=== PATIENT | female | born 1960 | race American Indian/Alaskan Native ===

== ENCOUNTER 2019-05-11 13:30 | Inpatient (IN) | payer MEDICARE ==
[2019-05-11] MEDS ORDERED: ASPIRIN PO ONE (13:51)
--- NOTE | 2019-05-11 13:53 | Event Note ---
ED Screening Note Date of service: 05/04/19 Time: 13:49 ED Screening Note: This is a 58 y.o. F. that presents to the ER with elevated blood pressure for 3- 4 days. PMH of HTN CC: Chest pain and headache Current cigar smoker Notified PCP Dr. Jacob who instructed patient to come into ER. Currently taking lisinopril 40 mg po daily. States she was taken off HCTZ due to renal failure but started back taking it for 3 days. This initial assessment/diagnostic orders/clinical plan/treatment(s) is/are subject to change based on patients health status, clinical progression and re- assessment by fellow clinical providers in the ED. Further treatment and workup at subsequent clinical providers discretion. Patient/guardian urged not to elope from the ED as their condition may be serious if not clinically assessed and managed. Initial orders include: Labs, EKG, & CXR
[2019-05-11 14:24] LABS: Hematocrit 30.3 % (30.3-42.9); Hemoglobin 9.7 gm/dl (10.1-14.3); Mean Corpuscular HGB Conc 32 % (30-34); Mean Corpuscular Volume 81 fl (79-97); Platelet Count 212 K/mm3 (140-440); Red Blood Count 3.74 M/mm3 (3.65-5.03)
[2019-05-11 14:28] LABS: Red Cell Distribution Width 23.5 % (13.2-15.2)
[2019-05-11] MEDS ORDERED: APRESOLINE IV ONE (14:43)
[2019-05-11 14:46] LABS: BUN/Creatinine Ratio 9; Blood Urea Nitrogen 10 mg/dL (7-17); Calcium 10.9 mg/dL (8.4-10.2); Hemolysis Index 0
--- NOTE | 2019-05-11 15:00 | Emergency Department Report ---
ED Chest Pain HPI - General Chief Complaint: Chest Pain Stated Complaint: HIGH BP/CHEST PAIN Time Seen by Provider: 05/11/19 13:49 Source: patient Mode of arrival: Ambulatory Limitations: No Limitations - History of Present Illness Initial Comments: 58-year-old -Slov[place] female presents to the emergency department with a complaint of a 2 day history of some left-sided chest pain, as well as elevated and uncontrolled blood pressure. The patient has a past medical history of hypertension, non-insulin dependent diabetes, high cholesterol, gout and neuropathy. The patient previously was on lisinopril and hydrochlorothiazide but the HCTZ was discontinued about 2 months ago secondary to some "kidney problems" that it caused. However the patient has been having this left-sided chest pain over the past 2 days and she has been checking her blood pressure and found it to be very elevated. Therefore the patient made the decision to restart the HCTZ but she still continues to have elevated blood pressures. The patient will occasionally smoke a Black and mild. She denies any illicit drug use. She thinks that she may have had a negative stress test at the end of last year at [facility]. Her primary care physician is Dr. Jacob, whom she contacted and was told to go to the emergency department with her complaints. She does not have a box car bracer. No recent travel or sick contacts at home. She took some aspirin last night for her symptoms without any relief. - Related Data Home Medications Medication Instructions Recorded Confirmed Last Taken Acetaminophen with Codeine 30 - 300 mg PO DAILY PRN 04/30/14 05/11/19 Unknown [Acetaminophen-Codeine #4 TAB] Aspirin 325 mg PO DAILY 04/30/14 05/11/19 Unknown Indomethacin [Indocin] 25 mg PO DAILY PRN 04/30/14 05/11/19 Unknown Lisinopril [Zestril TAB] 20 mg PO DAILY 04/30/14 05/11/19 Unknown Rosuvastatin (Nf) [Crestor] 40 mg PO DAILY 04/30/14 05/11/19 Unknown Triamter/Hctz 37.5-25 mg 25 mg PO DAILY 04/30/14 05/11/19 Unknown [Maxzide-25] metFORMIN [Glucophage] 500 mg PO BID 04/30/14 05/11/19 Unknown Previous Rx's Medication Instructions Recorded Last Taken Type Polyethylene Glycol 3350 [Miralax] 17 gm PO DAILY #5 day 01/21/14 Unknown Rx Allergies Allergy/AdvReac Type Severity Reaction Status Date / Time latex Allergy Swelling Verified 05/11/19 13:32 Heart Score - HEART Score History: Moderately suspicious EKG: Non-specific Age: 45-65 Risk factors: > 3 risk factors or hx of atherosclerotic disease Troponin: < normal limit HEART Score: 5 - Critical Actions Critical Actions: 4-6 pts:12-16.6% risk of adverse cardiac event. Should be admitted ED Review of Systems ROS: Stated complaint: HIGH BP/CHEST PAIN Other details as noted in HPI Comment: All other systems reviewed and negative Constitutional: denies: chills, fever Eyes: denies: eye pain, vision change ENT: denies: ear pain, throat pain Respiratory: denies: cough, shortness of breath Cardiovascular: chest pain. denies: palpitations Gastrointestinal: denies: abdominal pain, vomiting Genitourinary: denies: dysuria, frequency Musculoskeletal: denies: back pain, arthralgia Skin: denies: rash, lesions Neurological: denies: headache, weakness ED Past Medical Hx - Past Medical History Hx Hypertension: Yes Hx Diabetes: Yes Additional medical history: high cholesterol. gout. neuropathy - Surgical History Additional Surgical History: tubal ligation. cataracts / lens replaced - Social History Smoking Status: Current Every Day Smoker Substance Use Type: None - Medications Home Medications: Home Medications Medication Instructions Recorded Confirmed Last Taken Type Polyethylene Glycol 3350 [Miralax] 17 gm PO DAILY #5 day 01/21/14 05/11/19 Unknown Rx Acetaminophen with Codeine 30 - 300 mg PO DAILY PRN 04/30/14 05/11/19 Unknown History [Acetaminophen-Codeine #4 TAB] Aspirin 325 mg PO DAILY 04/30/14 05/11/19 Unknown History Indomethacin [Indocin] 25 mg PO DAILY PRN 04/30/14 05/11/19 Unknown History Lisinopril [Zestril TAB] 20 mg PO DAILY 04/30/14 05/11/19 Unknown History Rosuvastatin (Nf) [Crestor] 40 mg PO DAILY 04/30/14 05/11/19 Unknown History Triamter/Hctz 37.5-25 mg 25 mg PO DAILY 04/30/14 05/11/19 Unknown History [Maxzide-25] metFORMIN [Glucophage] 500 mg PO BID 04/30/14 05/11/19 Unknown History ED Physical Exam - General Limitations: No Limitations - Other Other exam information: GENERAL: The patient is well-developed well-nourished. HENT: Normocephalic. Atraumatic. Patient has moist mucous membranes. EYES: Extraocular motions are intact. NECK: Supple. Trachea is midline. CHEST/LUNGS: Clear to auscultation. There is no respiratory distress noted. HEART/CARDIOVASCULAR: Regular. There is no tachycardia. There is no murmur. ABDOMEN: Abdomen is soft, nontender. Patient has normal bowel sounds. There is no abdominal distention. SKIN: Skin is warm and dry. NEURO: The patient is awake, alert, and oriented. The patient is cooperative. The patient has normal speech. MUSCULOSKELETAL: There is no tenderness or deformity. There is no limitation range of motion. There is no evidence of acute injury. ED Course Vital Signs 05/11/19 05/11/19 05/11/19 13:50 14:43 15:31 Temperature 98.4 F Pulse Rate 81 62 Respiratory 16 18 Rate Blood Pressure 196/65 185/66 Blood Pressure [Left] O2 Sat by Pulse 100 100 Oximetry 05/11/19 15:33 Temperature Pulse Rate 62 Respiratory 18 Rate Blood Pressure Blood Pressure 185/66 [Left] O2 Sat by Pulse 100 Oximetry DERRICK score - Derrick Score Age > 65: (0) No Aspirin use within the Past 7 Days: (1) Yes 3 or more CAD Risk Factors: (1) Yes 2 or more Angina events in past 24 hrs: (1) Yes Known CAD with more than 50% Stenosis: (0) No Elevated Cardiac Markers: (0) No ST Deviation Greater than 0.5mm: (0) No DERRICK Score: 3 ED Medical Decision Making - Lab Data Result diagrams: 05/11/19 13:56 05/11/19 13:56 - EKG Data -: EKG Interpreted by Me EKG shows normal: sinus rhythm (but irregular), axis, intervals, QRS complexes (LVH), ST-T waves Rate: bradycardia (57 bpm) - EKG Data When compared to previous EKG there are: previous EKG unavailable Interpretation: other (sinus rhythm but irregular, mild bradycardia at 57 bpm, LVH) - Radiology Data Radiology results: image reviewed interpreted by me: Chest x-ray does not show any acute process. There are no pleural effusions, obvious pneumonia and there is no pneumothorax. - Medical Decision Making This patient presents with a 2 day history of some left-sided chest pain as well as some uncontrolled blood pressure despite compliance with her blood pressure medications. The patient even restarted the hydrochlorothiazide that had been previously discontinued. EKG shows some LVH but otherwise does not show any signs of ST elevation UT. Chest x-ray has been unremarkable. Labs have been mostly unremarkable except for some hypercalcemia. First troponin negative. She has some anemia but does not require a transfusion. An IV was placed and she was given a dose of hydralazine to start treating her hypertensive urgency. The patient has a moderate heart score as well as a moderate DERRICK score. She has multiple risk factors for coronary artery disease. For this reason, the patient will be admitted to the hospital for further evaluation and treatment was accepted for admission by the hospitalist, Dr. Woodward. - Differential Diagnosis UT, PE, costochondritis, pneumonia Critical Care Time: No Critical care attestation.: If time is entered above; I have spent that time in minutes in the direct care of this critically ill patient, excluding procedure time. ED Disposition Clinical Impression: Acute chest pain, Hypertensive urgency Disposition: OP ADMIT IP TO THIS HOSP Is pt being admited?: Yes Condition: Fair Instructions: Chest Pain (ED) Time of Disposition: 16:25
--- NOTE | 2019-05-11 15:12 | History and Physical Report ---
History of Present Illness Chief complaint: My chest hurts History of present illness: 58 YO Female with HTN, DM, Nicotine Dependence, HLD, Gout, Nephropathy presents to ED for evaluation. Pt states that she has experienced pain in her chest over the past 2 days. Pt states that pain is 5-7/10, Intermittent, Localized to the left chest, not worsened with exertion, not relieved with rest. Pt acknowledges decreased exercise tolerance, dypsnea with exertion. Pt notified her PCP and was instructed to seek further medical care. Pt transported via private vehicle to [facility]. Pt seen and evaluated in ED and found to have symptoms consistent with Angina, as well as CHF. Pt admitted to telemetry. Cardiology team consulted in ED. Pt denies fever, chills, palpitations, NVD, Trauma, Productive cough, BRBPR, skin rash, unintentional weight loss, night sweats, prolonged travel/immobility, unilateral leg swelling, calf pain, or recent ill contacts. Past History Past Medical History: hypertension, hyperlipidemia, other (gout) Past Surgical History: Other (Tubal ligation) Social history: single, smoking Family history: CAD, diabetes, hypertension Medications and Allergies Allergies Allergy/AdvReac Type Severity Reaction Status Date / Time latex Allergy Swelling Verified 05/11/19 13:32 Home Medications Medication Instructions Recorded Confirmed Last Taken Type Polyethylene Glycol 3350 [Miralax] 17 gm PO DAILY #5 day 01/21/14 05/11/19 Unknown Rx Acetaminophen with Codeine 30 - 300 mg PO DAILY PRN 04/30/14 05/11/19 Unknown History [Acetaminophen-Codeine #4 TAB] Aspirin 325 mg PO DAILY 04/30/14 05/11/19 Unknown History Indomethacin [Indocin] 25 mg PO DAILY PRN 04/30/14 05/11/19 Unknown History Lisinopril [Zestril TAB] 20 mg PO DAILY 04/30/14 05/11/19 Unknown History Rosuvastatin (Nf) [Crestor] 40 mg PO DAILY 04/30/14 05/11/19 Unknown History Triamter/Hctz 37.5-25 mg 25 mg PO DAILY 04/30/14 05/11/19 Unknown History [Maxzide-25] metFORMIN [Glucophage] 500 mg PO BID 04/30/14 05/11/19 Unknown History Review of Systems Constitutional: no weight loss, no weight gain, no fever, no chills Ears, nose, mouth and throat: no ear pain, no ear discharge, no tinnitis, no decreased hearing Breasts: no change in shape, no swelling, no mass Cardiovascular: chest pain, dyspnea on exertion, decreased exercise tolerance, no palpitations, no rapid/irregular heart beat, no syncope, no lightheadedness Respiratory: no cough, no cough with sputum, no excessive sputum, no hemoptysis, no shortness of breath Gastrointestinal: no nausea, no vomiting, no diarrhea, no constipation, no change in bowel habits Genitourinary Female: no pelvic pain, no flank pain, no menorrhagia, no dysuria, no urinary frequency, no urgency Rectal: no pain, no incontinence, no bleeding Musculoskeletal: no neck stiffness, no neck pain, no shooting arm pain, no arm numbness/tingling, no low back pain, no shooting leg pain, no leg numbness/tingling Integumentary: no rash, no pruritis, no redness, no sores, no wounds Neurological: no transient paralysis, no paralysis, no weakness, no parathesias, no numbness, no tingling, no seizures, no syncope Psychiatric: anxiety, no memory loss, no change in sleep habits, no insomnia, no hypersomnia, no change in libido, no suicidal ideation Endocrine: no cold intolerance, no heat intolerance, no polyphagia, no excessive thirst, no polydipsia, no excessive sweating Hematologic/Lymphatic: no easy bruising, no easy bleeding, no lymphadenopathy, no lymphedema Allergic/Immunologic: no urticaria, no wheezing, no persistent infections, no anaphylaxis, no angioedema Exam - Constitutional Vitals: Temp Pulse Resp BP Pulse Ox 98.4 F 81 16 196/65 100 05/11/19 13:50 05/11/19 13:50 05/11/19 13:50 05/11/19 13:50 05/11/19 13:50 General appearance: Present: mild distress - EENT Eyes: Present: PERRL ENT: hearing intact, clear oral mucosa - Neck Neck: Present: supple, normal ROM - Respiratory Respiratory effort: normal Respiratory: bilateral: CTA - Cardiovascular Heart Sounds: Present: S1 & S2. Absent: rub, click - Extremities Extremities: pulses symmetrical, No edema Peripheral Pulses: within normal limits - Abdominal General gastrointestinal: Present: soft, non-tender, non-distended, normal bowel sounds Female genitourinary: Present: normal - Integumentary Integumentary: Present: clear, warm, dry - Musculoskeletal Musculoskeletal: gait normal, strength equal bilaterally - Psychiatric Psychiatric: appropriate mood/affect, intact judgment & insight - Neurologic Neurologic: CNII-XII intact, moves all extremities Results - Labs CBC & Chem 7: 05/11/19 13:56 05/11/19 13:56 Labs: Abnormal lab results 05/11/19 05/11/19 Range/Units 13:56 13:56 WBC 2.3 L (4.5-11.0) K/mm3 Hgb 9.7 L (10.1-14.3) gm/dl MCH 26 L (28-32) pg RDW 23.5 H (13.2-15.2) % Glucose 107 H (65-100) mg/dL Calcium 10.9 H (8.4-10.2) mg/dL Assessment and Plan - Patient Problems (1) Diastolic CHF Current Visit: Yes Status: Acute Qualifiers: Heart failure chronicity: acute Qualified Code(s): I50.31 - Acute diastolic (congestive) heart failure Plan to address problem: Admit to telemetry, Echo, BNP, D dimer, chest x ray, pulse oximetry, strict I/O, daily weight, monitor uop q shift, cardiology consulted, magnesium, thyroid panel (2) Angina at rest Current Visit: Yes Status: Acute Plan to address problem: Serial cardiac enzymes, ekg, telemetry, stress test, cardiology consulted, morphine, supplemental oxygen, nitro, aspirin, (3) HLD (hyperlipidemia) Current Visit: Yes Status: Acute Qualifiers: Hyperlipidemia type: mixed hyperlipidemia Qualified Code(s): E78.2 - Mixed hyperlipidemia Plan to address problem: balanced diet, low cholesterol diet, (4) Gout Current Visit: Yes Status: Acute Qualifiers: Chronicity: unspecified Plan to address problem: Pain control, supportive care. (5) HLD (hyperlipidemia) Current Visit: Yes Status: Acute (6) Hypertensive urgency Current Visit: Yes Status: Acute Plan to address problem: Monitor BP q shift, supportive care, continue medical management. (7) DVT prophylaxis Current Visit: Yes Status: Acute Plan to address problem: SCD to BLE while in bed.
[2019-05-11] MEDS ORDERED: BABY ASPIRIN PO STA (15:13)
[2019-05-11] MEDS ORDERED: MORPHINE IV PRN (15:13)
[2019-05-11] MEDS ORDERED: PROVENTIL IH PRN (15:13)
[2019-05-11] MEDS ORDERED: SODIUM CHLORIDE FLUSH SYRINGE 10 ML IV PRN ×2 (15:13)
[2019-05-11] MEDS ORDERED: NITROSTAT SL PRN (15:13)
[2019-05-11] MEDS ORDERED: ZOFRAN IV PRN (15:13)
[2019-05-11] MEDS ORDERED: TYLENOL PO PRN (15:13)
--- NOTE | 2019-05-11 15:19 | XRay Report ---
CHEST 2 VIEWS INDICATION: Chest pain for 2 days. COMPARISON: None FINDINGS: Support devices: None. Heart: Within normal limits. Lungs/pleura: No acute air space or interstitial disease. No pneumothorax. Additional findings: None. IMPRESSION: No acute findings. Signer Name: Joshua Maynard Jr, MD Signed: 05/11/2019 3:15 PM Workstation Name: [id number]
[2019-05-11 15:22] LABS: Anisocytosis 1+; Hypochromasia 1+; Total Cells Counted 100
[2019-05-11] MEDS ORDERED: NORCO 5/325 PO PRN (15:38)
[2019-05-11] MEDS ORDERED: INDOCIN PO PRN (15:38)
[2019-05-11] MEDS ORDERED: ULTRAM PO PRN (15:38)
[2019-05-11] MEDS ORDERED: ATIVAN IV ONE (16:00)
[2019-05-11 16:14] LABS: Chol/HDL Ratio 3.89 %
[2019-05-11] MEDS: SODIUM CHLORIDE FLUSH SYRINGE 10 ML IV SCH (21:43)
[2019-05-11] MEDS ORDERED: ELAVIL PO SCH (22:00)
[2019-05-12 05:11] LABS: BUN/Creatinine Ratio 12; Blood Urea Nitrogen 12 mg/dL (7-17); Calcium 10.6 mg/dL (8.4-10.2); Hemolysis Index 0
[2019-05-12] MEDS ORDERED: LEXISCAN IV ONE ×2 (08:01→08:06)
[2019-05-12] MEDS ORDERED: ASPIRIN PO SCH (10:00)
[2019-05-12] MEDS ORDERED: NON-FORMULARY (Rosuvastatin 40 MG) PO SCH (10:00)
[2019-05-12] MEDS ORDERED: ZESTRIL PO SCH (10:00)
[2019-05-12] MEDS ORDERED: NON-FORMULARY (Polyethylene Glycol 3350 [Miralax] 17 GM) PO SCH (10:00)
[2019-05-12] MEDS ORDERED: PEPCID PO SCH (10:00)
[2019-05-12] MEDS ORDERED: MIRALAX 3350 PO SCH (10:00)
[2019-05-12] MEDS ORDERED: MAXZIDE-25 PO SCH (10:00)
--- NOTE | 2019-05-12 10:08 | Consultation ---
History of Present Illness Consult date: 05/12/19 Consult reason: chest pain History of present illness: 58 year old -[place] female presenting with chest pain. Patient admitted for further evaluation and management Past History Past Medical History: hypertension, hyperlipidemia, other (gout) Past Surgical History: Other (Tubal ligation) Social history: single, smoking Family history: CAD, diabetes, hypertension Medications and Allergies Allergies Allergy/AdvReac Type Severity Reaction Status Date / Time latex Allergy Swelling Verified 05/11/19 13:32 Home Medications Medication Instructions Recorded Confirmed Last Taken Type Polyethylene Glycol 3350 [Miralax] 17 gm PO DAILY #5 day 01/21/14 05/11/19 Unknown Rx Acetaminophen with Codeine 30 - 300 mg PO DAILY PRN 04/30/14 05/11/19 Unknown History [Acetaminophen-Codeine #4 TAB] Aspirin 325 mg PO DAILY 04/30/14 05/11/19 Unknown History Indomethacin [Indocin] 25 mg PO DAILY PRN 04/30/14 05/11/19 Unknown History Lisinopril [Zestril TAB] 20 mg PO DAILY 04/30/14 05/11/19 Unknown History Rosuvastatin (Nf) [Crestor] 40 mg PO DAILY 04/30/14 05/11/19 Unknown History metFORMIN [Glucophage] 500 mg PO BID 04/30/14 05/11/19 Unknown History Active Meds: Active Medications Acetaminophen (Tylenol) 650 mg PO Q4H PRN PRN Reason: Pain MILD(1-3)/Fever >100.5/PURI Last Admin: 05/11/19 21:45 Dose: 650 mg Documented by: Acetaminophen/Hydrocodone Bitart ([place] 5/325) 1 each PO Q6HR PRN PRN Reason: Pain Albuterol (Proventil) 2.5 mg IH Q4HRT PRN PRN Reason: Shortness Of Breath Amitriptyline HCl (Elavil) 50 mg PO QHS [facility] Last Admin: 05/11/19 21:40 Dose: 50 mg Documented by: Aspirin (Aspirin) 325 mg PO DAILY [facility] Atorvastatin Calcium (Lipitor) 80 mg PO QHS [facility] Last Admin: 05/11/19 21:40 Dose: 80 mg Documented by: Famotidine (Pepcid) 40 mg PO QDAY [facility] Indomethacin (Indocin) 25 mg PO DAILY PRN PRN Reason: gout Lisinopril (Zestril) 20 mg PO DAILY [facility] Morphine Sulfate (Morphine) 2 mg IV Q4H PRN PRN Reason: Pain, Moderate (4-6) Nitroglycerin (Nitrostat) 0.4 mg SL Q5M PRN PRN Reason: Chest Pain Ondansetron HCl (Zofran) 4 mg IV Q8H PRN PRN Reason: Nausea And Vomiting Polyethylene Glycol (Miralax 3350) 17 gm PO QDAY [facility] Sodium Chloride (Sodium Chloride Flush Syringe 10 Ml) 10 ml IV BID [facility] Last Admin: 05/11/19 21:43 Dose: 10 ml Documented by: Sodium Chloride (Sodium Chloride Flush Syringe 10 Ml) 10 ml IV PRN PRN PRN Reason: LINE FLUSH Sodium Chloride (Sodium Chloride Flush Syringe 10 Ml) 10 ml IV PRN PRN PRN Reason: LINE FLUSH Tramadol HCl (Ultram) 50 mg PO Q6H PRN PRN Reason: Pain Triamterene/HCTZ (Maxzide-25) 1 each PO DAILY [facility] Review of Systems Cardiovascular: chest pain Physical Examination Vital Signs Temp Pulse Resp BP Pulse Ox 98.4 F 81 16 196/65 100 05/11/19 13:50 05/11/19 13:50 05/11/19 13:50 05/11/19 13:50 05/11/19 13:50 General appearance: no acute distress, well-nourished HEENT: Positive: PERRL, Mucus Membranes Moist Neck: Positive: neck supple, trachea midline Cardiac: Positive: Reg Rate and Rhythm, S1/S2. Negative: Audible Murmur Lungs: Positive: clear to auscultation, Normal Breath Sounds Neuro: Positive: Grossly Intact Abdomen: Positive: Soft, Active Bowel Sounds. Negative: Tender, Distended Female genitourinary: deferred Skin: Positive: Clear Incision: Cardiac Cath Site Musculoskeletal: No Pain, Normal Range of Motion Extremities: Present: normal. Absent: edema Results 05/11/19 13:56 05/12/19 04:19 Lipids 05/11/19 Range/Units 15:33 Triglycerides 174 H (2-149) mg/dL Cholesterol 226 H (50-199) mg/dL HDL Cholesterol 58 (40-59) mg/dL Cholesterol/HDL Ratio 3.89 % CBC 05/11/19 Range/Units 13:56 WBC 2.3 L (4.5-11.0) K/mm3 RBC 3.74 (3.65-5.03) M/mm3 Hgb 9.7 L (10.1-14.3) gm/dl Hct 30.3 (30.3-42.9) % Plt Count 212 (140-440) K/mm3 Comprehensive Metabolic Panel 05/11/19 05/12/19 Range/Units 13:56 04:19 Sodium 140 137 (137-145) mmol/L Potassium 3.7 3.4 L (3.6-5.0) mmol/L Chloride 102.8 102.2 (98-107) mmol/L Carbon Dioxide 27 23 (22-30) mmol/L BUN 10 12 (7-17) mg/dL Creatinine 1.1 1.0 (0.7-1.2) mg/dL Glucose 107 H 91 (65-100) mg/dL Calcium 10.9 H 10.6 H (8.4-10.2) mg/dL EKG interpretations - Telemetry EKG Rhythm: Sinus Rhythm Assessment and Plan 1. Chest pain rule out ischemic coronary artery disease 2. Essential hypertension 3. Type 2 diabetes mellitus 4. Hypocalcemia Plan. Stress thallium rule out underlying ischemic coronary artery disease.
--- NOTE | 2019-05-12 10:32 | Event Note ---
Date: 05/12/19 Stress MPI post IV Lexiscan injection is normal Echocardiogram Normal LV size and function
--- NOTE | 2019-05-12 11:17 | Discharge Summary ---
Providers - Providers Date of Admission: 05/11/19 15:13 Attending physician: GOMEZ BERNARD MD 05/11/19 Consult to Cardiac Rehabilitation [CONS] Routine Reason For Exam: Phase I 05/11/19 15:13 Consult to Cardiology [CONS] Routine Consulting Provider: ANDREA GUZMAN Reason For Exam: angina Primary care physician: DIAMOND MARTINEZ Hospitalization Condition: Fair Disposition: DC-01 TO HOME OR SELFCARE Time spent for discharge: 33 mins Core Measure Documentation - Palliative Care Palliative Care/ Comfort Measures: Not Applicable - Core Measures Any of the following diagnoses?: none Exam - Constitutional Vitals: Temp Pulse Resp BP Pulse Ox 97.8 F 58 L 16 130/55 95 05/12/19 03:45 05/12/19 03:45 05/12/19 03:45 05/12/19 08:50 05/12/19 08:34 General appearance: Present: no acute distress, well-nourished - EENT Eyes: Present: PERRL ENT: hearing intact, clear oral mucosa - Neck Neck: Present: supple, normal ROM - Respiratory Respiratory effort: normal Respiratory: bilateral: CTA - Cardiovascular Heart Sounds: Present: S1 & S2. Absent: rub, click - Extremities Extremities: pulses symmetrical, No edema Peripheral Pulses: within normal limits - Abdominal General gastrointestinal: Present: soft, non-tender, non-distended, normal bowel sounds Female genitourinary: Present: normal - Integumentary Integumentary: Present: clear, warm, dry - Musculoskeletal Musculoskeletal: gait normal, strength equal bilaterally - Psychiatric Psychiatric: appropriate mood/affect, intact judgment & insight - Neurologic Neurologic: CNII-XII intact, moves all extremities Plan Follow up with: DIAMOND MARTINEZ MD [Primary Care Provider] - 3-5 Days
[2019-05-12 11:43] VITALS: BP 165/70
[2019-05-12] MEDS: SODIUM CHLORIDE FLUSH SYRINGE 10 ML IV SCH (11:45)
[2019-05-12] MEDS ORDERED: ULTRAM PO PRN (12:00)
[2019-05-12] MEDS ORDERED: NORCO 5/325 PO PRN (12:00)
== END 2019-05-12 15:30 | disposition home or self-care (01) | DRG 291 ==
LOC: ED 13:30 → 4A 15:13
PROVIDERS: ADMIT Internal Medicine; ATTEND Internal Medicine
DX: I11.0 Hypertensive heart disease with heart failure (principal); I50.31 Acute diastolic (congestive) heart failure; I16.0 Hypertensive urgency; M10.9 Gout, unspecified; F17.200 Nicotine dependence, unspecified, uncomplicated; E83.51 Hypocalcemia; E78.2 Mixed hyperlipidemia; I25.110 Atherosclerotic heart disease of native coronary artery with unstable angina pectoris; E11.40 Type 2 diabetes mellitus with diabetic neuropathy, unspecified; Z98.51 Tubal ligation status; Z82.49 Family history of ischemic heart disease and other diseases of the circulatory system; Z83.3 Family history of diabetes mellitus; Z91.040 Latex allergy status; Z79.899 Other long term (current) drug therapy; Z79.82 Long term (current) use of aspirin
CPT/HCPCS: 36415; 71046; 78452; 80048; 80061; 82962; 83880; 84484; 85007; 85025; 85379; 93005; 93010; 93017; 93306; 99406; G0378; A9270-GY; A9502; J0360; J2060; J2785

== ENCOUNTER 2021-07-08 14:49 | Emergency (ER) | payer MEDICARE ==
--- NOTE | 2021-07-08 15:32 | Event Note ---
ED Screening Note ED Screening Note: LABILE BP LATELY DR KOTHARI TOLD HER TO DOUBLE UP ON HER BYSTOLIC AND WATER PILL NOW SHE FEELS WEAK/ HAS CP/ FEELS CONFUSED HER 50'S BP 155/60 HX HTN OBESE HLD DM CHRONIC PAIN OCC CIGAR AND ETOH; NO DRUGS GERD PSH CATARACT MEDS CRESTOR BYSTOLIC WATER PILL PROCARDIA PREDNISONE PETER PERCOCET PPI This initial assessment/diagnostic orders/clinical plan/treatment(s) is/are subject to change based on patients health status, clinical progression and re- assessment by fellow clinical providers in the ED. Further treatment and workup at subsequent clinical providers discretion. Patient/guardian urged not to elope from the ED as their condition may be serious if not clinically assessed and managed. Initial orders include: LABS/XRAY/EKG
[2021-07-08 15:52] LABS: Bilirubin,Urine NEG (Negative); Blood,Urine NEG (Negative); Color,Urine Yellow (Yellow); Protein,Urine <15 mg/dL mg/dL (Negative); Urobilinogen,Urine < 2.0 mg/dL (<2.0)
[2021-07-08 15:55] LABS: WBC,Urine < 1.0 /HPF (0.0-6.0)
--- NOTE | 2021-07-08 15:56 | XRay Report ---
CHEST 2 VIEWS INDICATION / CLINICAL INFORMATION: CHEST PAIN. COMPARISON: 05/11/2019 FINDINGS: SUPPORT DEVICES: None. HEART / MEDIASTINUM: No significant abnormality. LUNGS / PLEURA: No significant pulmonary or pleural abnormality. No pneumothorax. ADDITIONAL FINDINGS: No significant additional findings. IMPRESSION: 1. No acute findings. Signer Name: Toño Garcia MD Signed: 07/08/2021 3:52 PM Workstation Name: [id number]
[2021-07-08 17:09] LABS: Basophils # (Auto) 0.1 K/mm3 (0.0-0.1); Basophils % (Auto) 1.5 % (0.0-1.8); Eosinophils # (Auto) 0.2 K/mm3 (0.0-0.4); Eosinophils % (Auto) 3.2 % (0.0-4.3); Hematocrit 38.3 % (30.3-42.9); Hemoglobin 12.7 gm/dl (10.1-14.3); Lymphocytes # (Auto) 1.8 K/mm3 (1.2-5.4); Lymphocytes % (Auto) 32.6 % (13.4-35.0); Mean Corpuscular HGB Conc 33 % (30-34); Mean Corpuscular Volume 93 fl (79-97); Monocytes # (Auto) 0.6 K/mm3 (0.0-0.8); Monocytes % (Auto) 11.1 % (0.0-7.3); Platelet Count 212 K/mm3 (140-440); Red Blood Count 4.13 M/mm3 (3.65-5.03); Red Cell Distribution Width 14.2 % (13.2-15.2)
--- NOTE | 2021-07-08 17:14 | Emergency Department Report ---
ED Fall HPI - General Chief Complaint: Dizziness Stated Complaint: HIGH AND LOW BLOOD PRESSURE Time Seen by Provider: 07/08/21 15:28 Source: patient Mode of arrival: Ambulatory - Related Data Home Medications Medication Instructions Recorded Confirmed Last Taken Acetaminophen with Codeine 30 - 300 mg PO DAILY PRN 04/30/14 05/11/19 Unknown [Acetaminophen-Codeine #4 TAB] Aspirin 325 mg PO DAILY 04/30/14 05/11/19 Unknown Indomethacin [Indocin] 25 mg PO DAILY PRN 04/30/14 05/11/19 Unknown Rosuvastatin (Nf) [Crestor] 40 mg PO DAILY 04/30/14 05/11/19 Unknown metFORMIN [Glucophage] 500 mg PO BID 04/30/14 05/11/19 Unknown Previous Rx's Medication Instructions Recorded Last Taken Type polyethylene glycoL 3350 [Miralax] 17 gm PO DAILY #5 day 01/21/14 Unknown Rx amLODIPine 10 mg PO DAILY #30 tab 05/12/19 Unknown Rx lisinopriL [Zestril TAB] 40 mg PO QDAY #30 tablet 05/12/19 Unknown Rx Allergies Allergy/AdvReac Type Severity Reaction Status Date / Time latex Allergy Swelling Verified 05/11/19 13:32 ED Review of Systems ROS: Stated complaint: HIGH AND LOW BLOOD PRESSURE Other details as noted in HPI ED Past Medical Hx - Past Medical History Previous Medical History?: Yes Hx Hypertension: Yes Hx Congestive Heart Failure: No Hx Diabetes: Yes Hx Asthma: No Hx COPD: No Additional medical history: high cholesterol. gout. neuropathy - Surgical History Past Surgical History?: Yes Additional Surgical History: tubal ligation. cataracts / lens replaced - Social History Smoking Status: Current Every Day Smoker - Medications Home Medications: Home Medications Medication Instructions Recorded Confirmed Last Taken Type polyethylene glycoL 3350 [Miralax] 17 gm PO DAILY #5 day 01/21/14 05/11/19 Unknown Rx Acetaminophen with Codeine 30 - 300 mg PO DAILY PRN 04/30/14 05/11/19 Unknown History [Acetaminophen-Codeine #4 TAB] Aspirin 325 mg PO DAILY 04/30/14 05/11/19 Unknown History Indomethacin [Indocin] 25 mg PO DAILY PRN 04/30/14 05/11/19 Unknown History Rosuvastatin (Nf) [Crestor] 40 mg PO DAILY 04/30/14 05/11/19 Unknown History metFORMIN [Glucophage] 500 mg PO BID 04/30/14 05/11/19 Unknown History amLODIPine 10 mg PO DAILY #30 tab 05/12/19 Unknown Rx lisinopriL [Zestril TAB] 40 mg PO QDAY #30 tablet 05/12/19 Unknown Rx ED Physical Exam - General Limitations: No Limitations ED Course Vital Signs 07/08/21 07/08/21 14:56 16:58 Temperature 98.1 F Pulse Rate 59 L 51 L Respiratory 20 16 Rate Blood Pressure 155/60 Blood Pressure 152/53 [Right] O2 Sat by Pulse 100 100 Oximetry Critical care attestation.: If time is entered above; I have spent that time in minutes in the direct care of this critically ill patient, excluding procedure time. ED Disposition Condition: Stable
[2021-07-08 17:17] LABS: Alanine Aminotransferase 13 units/L (7-56); Albumin 4.2 g/dL (3.9-5); BUN/Creatinine Ratio 17; Blood Urea Nitrogen 20 mg/dL (7-17); Calcium 10.5 mg/dL (8.4-10.2); Hemolysis Index 8
--- NOTE | 2021-07-08 17:42 | Emergency Department Report ---
ED Dizziness HPI - General Chief Complaint: Dizziness Stated Complaint: HIGH AND LOW BLOOD PRESSURE Time Seen by Provider: 07/08/21 15:28 Source: patient Mode of arrival: Ambulatory Limitations: No Limitations - History of Present Illness Initial Comments: 60-year-old female presents to ED with complaint of elevated blood pressure, dizziness, neck pain. Patient states she has been trying to get her blood pressure under control for the last 2 weeks. Patient states she spoke with her PCP, Dr. Kothari, who advised her to take double dose of her blood pressure medicine. Patient states over the last couple of days, her blood pressure has been up and down, she has felt somewhat lightheaded and has had some pain in the back of her neck. She denies any headache or nausea and vomiting. MD Complaint: lightheadedness -: days(s) (2) Description: lightheadedness Severity: moderate Improves With: nothing Worsens With: nothing Associated Symptoms: chest pain. denies: shortness of breath, syncope, weakness - Related Data Home Medications Medication Instructions Recorded Confirmed Last Taken Acetaminophen with Codeine 30 - 300 mg PO DAILY PRN 04/30/14 05/11/19 Unknown [Acetaminophen-Codeine #4 TAB] Aspirin 325 mg PO DAILY 04/30/14 05/11/19 Unknown Indomethacin [Indocin] 25 mg PO DAILY PRN 04/30/14 05/11/19 Unknown Rosuvastatin (Nf) [Crestor] 40 mg PO DAILY 04/30/14 05/11/19 Unknown metFORMIN [Glucophage] 500 mg PO BID 04/30/14 05/11/19 Unknown Previous Rx's Medication Instructions Recorded Last Taken Type polyethylene glycoL 3350 [Miralax] 17 gm PO DAILY #5 day 01/21/14 Unknown Rx amLODIPine 10 mg PO DAILY #30 tab 05/12/19 Unknown Rx lisinopriL [Zestril TAB] 40 mg PO QDAY #30 tablet 05/12/19 Unknown Rx Allergies Allergy/AdvReac Type Severity Reaction Status Date / Time latex Allergy Swelling Verified 05/11/19 13:32 ED Review of Systems ROS: Stated complaint: HIGH AND LOW BLOOD PRESSURE Other details as noted in HPI Comment: All other systems reviewed and negative Constitutional: denies: chills, fever Respiratory: denies: cough, shortness of breath Cardiovascular: chest pain (Very mild) Neurological: denies: headache, weakness, numbness ED Past Medical Hx - Past Medical History Previous Medical History?: Yes Hx Hypertension: Yes Hx Congestive Heart Failure: No Hx Diabetes: Yes Hx Asthma: No Hx COPD: No Additional medical history: high cholesterol. gout. neuropathy - Surgical History Past Surgical History?: Yes Additional Surgical History: tubal ligation. cataracts / lens replaced - Social History Smoking Status: Current Every Day Smoker - Medications Home Medications: Home Medications Medication Instructions Recorded Confirmed Last Taken Type polyethylene glycoL 3350 [Miralax] 17 gm PO DAILY #5 day 01/21/14 05/11/19 Unknown Rx Acetaminophen with Codeine 30 - 300 mg PO DAILY PRN 04/30/14 05/11/19 Unknown History [Acetaminophen-Codeine #4 TAB] Aspirin 325 mg PO DAILY 04/30/14 05/11/19 Unknown History Indomethacin [Indocin] 25 mg PO DAILY PRN 04/30/14 05/11/19 Unknown History Rosuvastatin (Nf) [Crestor] 40 mg PO DAILY 04/30/14 05/11/19 Unknown History metFORMIN [Glucophage] 500 mg PO BID 04/30/14 05/11/19 Unknown History amLODIPine 10 mg PO DAILY #30 tab 05/12/19 Unknown Rx lisinopriL [Zestril TAB] 40 mg PO QDAY #30 tablet 05/12/19 Unknown Rx ED Physical Exam - General Limitations: No Limitations General appearance: alert, in no apparent distress - Head Head exam: Present: atraumatic, normocephalic - Eye Eye exam: Present: normal appearance, PERRL, EOMI - ENT ENT exam: Present: mucous membranes moist - Neck Neck exam: Present: normal inspection, full ROM. Absent: tenderness, meningismus - Respiratory Respiratory exam: Present: normal lung sounds bilaterally. Absent: respiratory distress - Cardiovascular Cardiovascular Exam: Present: normal rhythm, bradycardia - GI/Abdominal GI/Abdominal exam: Present: soft. Absent: distended, tenderness - Extremities Exam Extremities exam: Present: normal inspection - Neurological Exam Neurological exam: Present: alert, oriented X3, CN II-XII intact, normal gait. Absent: motor sensory deficit - Psychiatric Psychiatric exam: Present: normal affect, normal mood - Skin Skin exam: Present: warm, dry, intact, normal color ED Course Vital Signs 10/06/21 10/06/21 10/06/21 14:56 16:58 21:01 Temperature 98.1 F 98.2 F Pulse Rate 59 L 51 L 61 Respiratory 20 16 14 Rate Blood Pressure 155/60 Blood Pressure 152/53 150/66 [Right] O2 Sat by Pulse 100 100 100 Oximetry 07/08/21 21:02 Temperature Pulse Rate Respiratory Rate Blood Pressure Blood Pressure [Right] O2 Sat by Pulse 100 Oximetry ED Medical Decision Making - Lab Data Result diagrams: 07/08/21 16:27 07/08/21 16:27 - EKG Data -: EKG Interpreted by Me EKG shows normal: sinus rhythm, axis, intervals, QRS complexes, ST-T waves Rate: bradycardia (rate 52) - EKG Data Interpretation: no acute changes, LVH - Radiology Data Radiology results: report reviewed, image reviewed - Medical Decision Making 60-year-old female presents to ED with complaint of labile blood pressure, dizziness, neck pain. EKG unremarkable, shows no ST changes. Labs are u nremarkable. CTA head and neck were done to rule out vertebral artery dissection. Both are unremarkable. Vital signs stable here in the ED. Blood pressure not severely elevated. No intervention done. Patient advised to follow-up with her PCP, return precautions given. - Differential Diagnosis Vertebral artery dissection, hypertensive dizziness, ACS Critical care attestation.: If time is entered above; I have spent that time in minutes in the direct care of this critically ill patient, excluding procedure time. ED Disposition Clinical Impression: Hypertension, Dizziness Disposition: 01 HOME / SELF CARE / HOMELESS Is pt being admited?: No Condition: Stable Instructions: Hypertension, Adult, [id number], Dizziness, [id number], Hypertension (ED) Referrals: LUIS ANGEL KOTHARI MD [Primary Care Provider] - 3-5 Days Time of Disposition: 21:28
--- NOTE | 2021-07-08 20:23 | Cat Scan Report ---
CTA NECK WITH CONTRAST 07/08/2021 INDICATION / CLINICAL INFORMATION: neck pain, dizziness. COMPARISON: None. TECHNIQUE: Routine CTA of the neck is performed. 3-D/MIP reformats were postprocessed. Percentage st enosis is determined by direct quantitative measurements of diseased internal carotid artery diameter compared with normal distal internal carotid artery reference segments or by criteria similar to [place] CET where applicable. All CT scans at this location are performed using CT dose reduction for ALARA b y means of automated exposure control. CONTRAST: 100 ml of iodinated contrast FINDINGS: Carotid bifurcations: Unremarkable. No evidence of bifurcation stenosis. Carotid arteries: No significant abnormality. Cervical vertebral arteries: No significant abnormality. There is no CT angiographic evidence of vess el occlusion or dissection. Aortic arch: No significant abnormality. None. IMPRESSION: No significant abnormality. Signer Name: Kvng Way MD Signed: 07/08/2021 8:18 PM Workstation Name: [id number]
--- NOTE | 2021-07-08 20:25 | Cat Scan Report ---
CTA HEAD WITH CONTRAST 07/08/2021 HISTORY: neck pain, dizziness. COMPARISON: None. TECHNIQUE: All CT scans at this location are performed using CT dose reduction for ALARA by means of automated exposure control.. 3-D/MIP reformats postprocessed. Percentage stenosis is determined by d irect quantitative measurements of diseased internal carotid artery diameter compared with normal dis saeed internal carotid artery reference segments or by criteria similar to NASCET where applicable. CONTRAST: 100 ml of Omnipaque 350 FINDINGS: CTA HEAD: Intracranial vertebral arteries: No significant abnormality. Basilar artery: No significant abnormality. Posterior cerebral arteries: No significant abnormality. Intracranial internal carotid arteries: No significant abnormality. Anterior cerebral arteries: No significant abnormality. Middle cerebral arteries: No significant abnormality. Dural venous sinuses:Not optimally opacified. No significant abnormality. Additional findings: Incidental note is made of a prominent empty sella. IMPRESSION: 1. No significant abnormality. Signer Name: Kvng Way MD Signed: 07/08/2021 8:21 PM Workstation Name: [id number]
[2021-07-08 21:02] VITALS: BP 150/66
--- NOTE | 2021-07-09 10:36 | Electrocardiograph Report ---
[facility] Test Date: 2021-07-08 Test Time: 17:07:51 Pat Name: PRISICLLA ODOM Department: Room: Gender: F Insurance Account Assistant: NURSE : 1960 Requested By: ISAMAR MEZA Order Number: [id number] Reading MD: Mitul He Measurements Intervals [place] Rate: 52 P: 61 VT: 152 QRS: -2 QRSD: 80 T: 24 QT: 437 QTc: 408 Interpretive Statements Sinus rhythm Left ventricular hypertrophy No previous ECG available for comparison Electronically Signed On 07-09-2021 10:35:43 EDT by Mitul He
== END 2021-07-08 22:21 | disposition home or self-care (01) ==
LOC: ED 14:49
DX: I10 Essential (primary) hypertension (principal); R42 Dizziness and giddiness; E11.8 Type 2 diabetes mellitus with unspecified complications; E78.00 Pure hypercholesterolemia, unspecified; M10.9 Gout, unspecified; G62.9 Polyneuropathy, unspecified; Z98.890 Other specified postprocedural states; F17.200 Nicotine dependence, unspecified, uncomplicated; Z91.040 Latex allergy status
CPT/HCPCS: 36415; 70496; 70498; 71046; 80053; 81001; 84484; 85025; 93005; 99284; Q9967

== ENCOUNTER 2021-12-02 18:56 | Emergency (ER) | payer MEDICARE ==
[2021-12-02] MEDS ORDERED: oxyCODONE /ACETAMINOPHEN 5-325MG TAB PO ONE (20:40)
--- NOTE | 2021-12-02 20:42 | Emergency Department Report ---
HPI - General Chief Complaint: Vaginal Bleeding Time Seen by Provider: 12/02/21 20:25 - HPI HPI: 61-year-old -[place] female presents to the emergency department with complaint of a 3-day history of pain to the right lower back that radiates aroun d the lower flank and into the lower abdomen and pelvis. Today, while using the restroom, the patient felt like there was something "coming out of the vagina", but the patient says that she was able to push it back in. She also complains of some mild pinkish discharge or mild spotting. She rates her pain at 10 out of 10 in intensity. No known aggravating or alleviating factors. She has a past medical history of hypertension, chronic kidney disease, diabetes and has a history of a tubal ligation. She has not taken anything for symptoms prior to presentation today. No recent travel or sick contacts at home. ED Past Medical Hx - Past Medical History Previous Medical History?: Yes Hx Hypertension: Yes Hx Congestive Heart Failure: No Hx Diabetes: Yes Hx Asthma: No Hx COPD: No Additional medical history: high cholesterol. gout. neuropathy - Surgical History Past Surgical History?: Yes Additional Surgical History: tubal ligation. cataracts / lens replaced - Social History Smoking Status: Unknown if ever smoked - Medications Home Medications: Home Medications Medication Instructions Recorded Confirmed Last Taken Type polyethylene glycoL 3350 [Miralax] 17 gm PO DAILY #5 day 01/21/14 05/11/19 Unknown Rx Acetaminophen with Codeine 30 - 300 mg PO DAILY PRN 04/30/14 05/11/19 Unknown History [Acetaminophen-Codeine #4 TAB] Aspirin 325 mg PO DAILY 04/30/14 05/11/19 Unknown History Indomethacin [Indocin] 25 mg PO DAILY PRN 04/30/14 05/11/19 Unknown History Rosuvastatin (Nf) [Crestor] 40 mg PO DAILY 04/30/14 05/11/19 Unknown History metFORMIN [Glucophage] 500 mg PO BID 04/30/14 05/11/19 Unknown History amLODIPine 10 mg PO DAILY #30 tab 05/12/19 Unknown Rx lisinopriL [Zestril TAB] 40 mg PO QDAY #30 tablet 05/12/19 Unknown Rx HYDROcodone/APAP 5-325 [[place] 1 each PO Q6HR PRN #12 tablet 12/02/21 Unknown Rx 5/325] Nitrofurantoin [place]/M-Cryst 100 mg PO Q12HR #14 capsule 12/02/21 Unknown Rx [Macrobid CAP] metroNIDAZOLE [Flagyl] 500 mg PO Q12HR #14 tab 12/02/21 Unknown Rx ED Review of Systems ROS: Stated complaint: LOW BACK/SPOTTING Other details as noted in HPI Comment: All other systems reviewed and negative Constitutional: denies: chills, fever Eyes: denies: eye pain, vision change ENT: denies: ear pain, throat pain Respiratory: denies: cough, shortness of breath Cardiovascular: denies: chest pain, palpitations Gastrointestinal: abdominal pain. denies: vomiting Genitourinary: discharge. denies: frequency Musculoskeletal: back pain. denies: arthralgia Skin: denies: rash, lesions Neurological: denies: headache, weakness Physical Exam - Physical Exam Vital Signs: Vital Signs 12/02/21 19:57 Temperature 98.4 F Pulse Rate 89 Respiratory 16 Rate Blood Pressure 157/65 [Right] O2 Sat by Pulse 100 Oximetry Physical Exam: GENERAL: The patient is well-developed well-nourished. HENT: Normocephalic. Atraumatic. Patient has moist mucous membranes. EYES: Extraocular motions are intact. NECK: Supple. Trachea is midline. CHEST/LUNGS: Clear to auscultation. There is no respiratory distress noted. HEART/CARDIOVASCULAR: Regular. There is no tachycardia. There is no murmur. ABDOMEN: Abdomen is soft. Mild right lower quadrant abdominal tenderness to palpation. No guarding. Patient has normal bowel sounds. There is no abdominal distention. SKIN: Skin is warm and dry. NEURO: The patient is awake, alert, and oriented. The patient is cooperative. The patient has no focal neurologic deficits. Normal speech. MUSCULOSKELETAL: There is no tenderness or deformity. There is no limitation range of motion. BACK: No CVA tenderness to palpation. PELVIC: Mild thin white discharge seen in the vagina. ED Course Vital Signs 12/02/21 19:57 Temperature 98.4 F Pulse Rate 89 Respiratory 16 Rate Blood Pressure 157/65 [Right] O2 Sat by Pulse 100 Oximetry ED Medical Decision Making - Lab Data Result diagrams: 12/02/21 20:45 12/02/21 20:45 Lab Results 12/02/21 12/02/21 12/02/21 Range/Units 20:45 20:45 23:00 WBC 6.0 (4.5-11.0) K/mm3 RBC 4.24 (3.65-5.03) M/mm3 Hgb 12.8 (10.1-14.3) gm/dl Hct 39.0 (30.3-42.9) % MCV 92 (79-97) fl MCH 30 (28-32) pg MCHC 33 (30-34) % RDW 13.9 (13.2-15.2) % Plt Count 194 (140-440) K/mm3 Lymph % (Auto) 28.5 (13.4-35.0) % [place] % (Auto) 11.1 H (0.0-7.3) % Eos % (Auto) 3.3 (0.0-4.3) % Baso % (Auto) 1.1 (0.0-1.8) % Lymph # (Auto) 1.7 (1.2-5.4) K/mm3 [place] # (Auto) 0.7 (0.0-0.8) K/mm3 Eos # (Auto) 0.2 (0.0-0.4) K/mm3 Baso # (Auto) 0.1 (0.0-0.1) K/mm3 Seg Neutrophils % 56.0 (40.0-70.0) % Seg Neutrophils # 3.4 (1.8-7.7) K/mm3 Sodium 139 (137-145) mmol/L Potassium 3.9 (3.6-5.0) mmol/L Chloride 105.0 (98-107) mmol/L Carbon Dioxide 20 L (22-30) mmol/L Anion Gap 18 mmol/L BUN 17 (7-17) mg/dL Creatinine 1.2 (0.6-1.2) mg/dL Estimated GFR 55 ml/min BUN/Creatinine Ratio 14 % Glucose 197 H (65-100) mg/dL Calcium 10.9 H (8.4-10.2) mg/dL Total Bilirubin 0.20 (0.1-1.2) mg/dL AST 16 (5-40) units/L ALT 17 (7-56) units/L Alkaline Phosphatase 123 (35-129) units/L Total Protein 7.6 (6.3-8.2) g/dL Albumin 4.2 (3.9-5) g/dL Albumin/Globulin Ratio 1.2 % Urine Color Colorless (Yellow) Urine Turbidity Clear (Clear) Urine pH 6.0 (5.0-7.0) Ur Specific [place] 1.005 (1.003-1.030) Urine Protein <15 mg/dl (Negative) mg/dL Urine Glucose (UA) Negative (Negative) mg/dL Urine Ketones Negative (Negative) mg/dL Urine Blood Trace (Negative) Urine Nitrite Negative (Negative) Ur Reducing Substances Not Reportable Urine Bilirubin Negative (Negative) Urine Ictotest Not Reportable Urine Urobilinogen < 2.0 (<2.0) mg/dL Ur Leukocyte Esterase Large (Negative) Urine WBC (Auto) 8.0 H (0.0-6.0) /HPF Urine RBC (Auto) 3.0 (0.0-6.0) /HPF U Epithel Cells (Auto) 2.0 (0-13.0) /HPF Urine Bacteria (Auto) 1+ (Negative) /HPF - Radiology Data Radiology results: report reviewed CT ABDOMEN AND PELVIS WITHOUT CONTRAST INDICATION / CLINICAL INFORMATION: Pt states RIGHT back/flank, R.L.Q. abd and pelvic pain. TECHNIQUE: Axial CT images were obtained through the abdomen and pelvis without IV contrast. All CT scans at this location are performed using CT dose reduction for ALARA by means of a utomated exposure control. COMPARISON: CT from 01/21/2014. FINDINGS: LOWER CHEST: Mild bibasilar volume loss. LIVER: No significant abnormality GALLBLADDER/BILIARY TREE: No significant abnormality PANCREAS: No significant abnormality SPLEEN: No significant abnormality ADRENALS: No significant abnorma lity KIDNEYS / URETER: No significant abnormality. No urolithiasis or hydronephrosis. URINARY BLADDER: No significant abnormality REPRODUCTIVE ORGANS: Calcified uterine fibroid. No suspicious adnexal mass. STOMACH / BOWEL: Small bowel is normal in caliber. Colonic diverticulosis without evidence of diverticulitis. The appendix is normal in caliber. LYMPH NODES: Borderline- enlarged bilateral iliac chain lymph nodes are stable from 2014 examination. VASCULATURE: Moderate atherosclerotic calcification without acute abnormality. OTHER: No free air, free fluid, or focal fluid collection is identified. SKELETAL SYSTEM: No acute osseous findings. IMPRESSION: 1. No evidence of acute abnormality. No urolithiasis or hydronephrosis. 2. Mild colonic diverticulosis without evidence of diverticulitis. 3. Other stable chronic and incidental findings as above. - Medical Decision Making This patient presents with a 3-day history of some pain from the right lower back that radiates around to the lower flank, right lower quadrant of the abdomen and into the pelvis. The patient also stated that she has concerns that there was something that was dropping down from the vagina when she was trying to use the restroom. I did a pelvic examination with indoor landscaper/gardener Rosenda at bedside to toll gate keeper and assist. Before the speculum was placed there is a small amount of soft tissue seen to the posterior vaginal wall that could represent with the patient was feeling, but at this time there was no prolapse of any tissue. I was able to see the cervix without any obvious abnormalities. There was a small amount of thin white discharge. Labs were mostly unremarkable except for a very mild urinary tract infection, and wet prep positive for bacterial vaginosis and yeast. CT scan of the abdomen pelvis shows some diverticulosis without diverticulitis, but otherwise does not show the etiology of the patient's discomfort or any other acute process. Vital signs of been reassuring throughout her ED course. The patient will be discharged home for outpatient follow-up with primary care and REHAB NURSE. She has been given Flagyl for bacterial vaginosis, Macrobid for the mild urinary tract infection, and oral analgesia. She will return to the emergency department with any worsening of her symptoms or with any acute distress. Critical Care Time: No Critical care attestation.: If time is entered above; I have spent that time in minutes in the direct care of this critically ill patient, excluding procedure time. ED Disposition Clinical Impression: Flank pain, Pelvic pain, Bacterial vaginosis Back pain Qualifiers: Back pain location: low back pain Chronicity: unspecified Back pain laterality: right Sciatica presence: without sciatica Qualified Code(s): M54.50 - Low back pain, unspecified UTI (urinary tract infection) Qualifiers: Urinary tract infection type: acute cystitis Hematuria presence: without hematuria Qualified Code(s): N30.00 - Acute cystitis without hematuria Disposition: HOME / SELF CARE / HOMELESS Is pt being admited?: No Condition: Stable Instructions: Acute Back Pain, Adult, Pelvic Pain, Female, Bacterial Vaginosis, [id number]-[id number], Urinary Tract Infection, Adult, Flank Pain, Adult, Bacterial Vaginosis (ED) Additional Instructions: Please follow-up with your primary care physician in the next few days. I am giving you a referral for a local REHAB NURSE, Dr. Doe. You have been prescribed a medication that is sedating and therefore should not be taken prior to driving, working, and responsible for children and in no way should be mixed with alcohol of any quantity. Return to the emergency department with any worsening of your symptoms, new or concerning symptoms not addressed during this current emergency department visit, or with any acute distress. Prescriptions: metroNIDAZOLE [Flagyl] 500 mg PO Q12HR #14 tab Nitrofurantoin [place]/M-Cryst [Macrobid CAP] 100 mg PO Q12HR #14 capsule HYDROcodone/APAP 5-325 [[place] 5/325] 1 each PO Q6HR PRN #12 tablet PRN Reason: Pain Referrals: PRIMARY CAREMD [Primary Care Provider] - 3-5 Days CHINYERE DOE MD [Staff Physician] - 3-5 Days Forms: STI Treatment and Prevention Time of Disposition: 23:46
[2021-12-02 21:05] LABS: Basophils # (Auto) 0.1 K/mm3 (0.0-0.1); Basophils % (Auto) 1.1 % (0.0-1.8); Eosinophils # (Auto) 0.2 K/mm3 (0.0-0.4); Eosinophils % (Auto) 3.3 % (0.0-4.3); Hemoglobin 12.8 gm/dl (10.1-14.3); Lymphocytes # (Auto) 1.7 K/mm3 (1.2-5.4); Lymphocytes % (Auto) 28.5 % (13.4-35.0); Mean Corpuscular HGB Conc 33 % (30-34); Mean Corpuscular Volume 92 fl (79-97); Monocytes # (Auto) 0.7 K/mm3 (0.0-0.8); Monocytes % (Auto) 11.1 % (0.0-7.3); Platelet Count 194 K/mm3 (140-440); Red Blood Count 4.24 M/mm3 (3.65-5.03); Red Cell Distribution Width 13.9 % (13.2-15.2)
[2021-12-02 21:18] LABS: Albumin 4.2 g/dL (3.9-5); Calcium 10.9 mg/dL (8.4-10.2)
--- NOTE | 2021-12-02 22:12 | Cat Scan Report ---
CT ABDOMEN AND PELVIS WITHOUT CONTRAST INDICATION / CLINICAL INFORMATION: Pt states RIGHT back/flank, R.L.Q. abd and pelvic pain. TECHNIQUE: Axial CT images were obtained through the abdomen and pelvis without IV contrast. All CT scans at this location are performed using CT dose reduction for [place] by means of automated exposure control. COMPARISON: CT from 01/21/2014. FINDINGS: LOWER CHEST: Mild bibasilar volume loss. LIVER: No significant abnormality GALLBLADDER/BILIARY TREE: No significant abnormality PANCREAS: No significant abnormality SPLEEN: No significant abnormality ADRENALS: No significant abnormality KIDNEYS / URETER: No significant abnormality. No urolithiasis or hydronephrosis. URINARY BLADDER: No significant abnormality REPRODUCTIVE ORGANS: Calcified uterine fibroid. No suspicious adnexal mass. STOMACH / BOWEL: Small bowel is normal in caliber. Colonic diverticulosis without evidence of diverti culitis. The appendix is normal in caliber. LYMPH NODES: Borderline-enlarged bilateral iliac chain lymph nodes are stable from 2014 examination. VASCULATURE: Moderate atherosclerotic calcification without acute abnormality. OTHER: No free air, free fluid, or focal fluid collection is identified. SKELETAL SYSTEM: No acute osseous findings. IMPRESSION: 1. No evidence of acute abnormality. No urolithiasis or hydronephrosis. 2. Mild colonic diverticulosis without evidence of diverticulitis. 3. Other stable chronic and incidental findings as above. Signer Name: Camron Baldwin MD Signed: 12/02/2021 10:07 PM Workstation Name: [id number]
[2021-12-02 23:16] LABS: Bacteria,Urine 1+ /HPF (Negative)
[2021-12-02 23:36] LABS: Bilirubin,Urine Negative (Negative); Blood,Urine Trace (Negative); Color,Urine Colorless (Yellow)
[2021-12-02 23:37] LABS: Protein,Urine <15 mg/dL mg/dL (Negative); Urobilinogen,Urine < 2.0 mg/dL (<2.0)
[2021-12-02] MEDS ORDERED: FLUCONAZOLE 100 MG TAB PO ONE (23:47)
[2021-12-03] MEDS ORDERED: IBUPROFEN 600 MG TAB PO ONE (02:06)
[2021-12-03 02:46] VITALS: BP 153/70
--- NOTE | 2021-12-04 13:31 | Event Note ---
Date: 12/04/21 Patient returned and brought back prescription given to her for [place] 5 325 tablets. The prescription was a copy only was not valid for dispensing. I have therefore reprinted a new prescription for [place] at the same dose which was given directly to the patient. The prior prescription was thrown away.
== END 2021-12-03 02:47 | disposition home or self-care (01) ==
LOC: ED 18:56
DX: R10.9 Unspecified abdominal pain (principal); N77.1 Vaginitis, vulvitis and vulvovaginitis in diseases classified elsewhere; R10.2 Pelvic and perineal pain; M54.50 Low back pain, unspecified; N39.0 Urinary tract infection, site not specified; I10 Essential (primary) hypertension
CPT/HCPCS: 36415; 74176; 80053; 81001; 85025; 87210; 99284